=== PATIENT | female | born 1960 | race Caucasian/White ===

== ENCOUNTER → 2023-05-09 07:33 | Outpatient (REF) | payer BC, SELFPAY | LOC: HWRAD 07:33 | PROVIDERS: ATTENDING PHYSICIAN Family Medicine | DX: Z78.0 Asymptomatic menopausal state (principal); Z87.891 Personal history of nicotine dependence | CPT/HCPCS: 71271; 77063; 77067; 77080 ==

== ENCOUNTER 2023-06-20 10:23 | Emergency (ER) | payer BC, SELFPAY ==
[2023-06-20 10:26] VITALS: BP 120/59
[2023-06-20 11:08] VITALS: BMI 22.2
[2023-06-20 11:12] VITALS: BP 103/56
[2023-06-20 11:21] LABS: % Basophils 0.3 % (0-2); % Eosinophils 0.1 % (0-6); % Immature Granulocytes 0.4 % (0-0.5); % Lymphocytes 13.7 % (20.5-51.1); % Neutrophils 75.5 % (42.2-75.2); Absolute Immature Granulocytes 0.1 10^3/uL (0-0.05); Absolute Lymphocytes 1.7 10^3/uL (1.2-3.4); Absolute Monocytes 1.2 10^3/uL (0.1-0.6); Absolute Neutrophils 9.3 10^3/uL (1.4-6.5); Hemoglobin 12.8 g/dL (12.0-16.0); Mean Corp Hgb Conc. 34.6 g/dL (33.0-37.0); Mean Corpuscular Hgb 31.1 pg (27.0-31.0); Mean Corpuscular Volume 89.8 fL (81.0-99.0); Mean Platelet Volume 9.6 fL (7.4-10.4); Nucleated Red Blood Cells % 0 %; Platelet Count 253 10^3/uL (130-400); Red Blood Cell Count 4.12 10^6/uL (4.20-5.40); Red Cell Dist. Width 11.7 % (11.5-14.5); White Blood Cell Count 12.3 10^3/uL (4.8-10.8)
[2023-06-20 11:34] LABS: Urine Albumin Negative (Neg - Trace); Urine Bilirubin Negative (Negative); Urine Character Clear (Clear); Urine Color Yellow; Urine Glucose Negative (Negative); Urine Ketone Negative (Negative); Urine Leukocyte Negative (Negative); Urine Nitrite Negative (Negative); Urine Occult Blood 2+ (Negative); Urine Specific Gravity 1.015 (<1.030); Urine Urobilinogen Negative (Neg - 1+)
[2023-06-20 11:57] LABS: ALT (SGPT) 22 U/L (0-35); AST (SGOT) 26 U/L (14-36); Albumin 4.2 g/dl (3.5-5.0); Alkaline Phosphatase 80 U/L (38-126); Blood Urea Nitrogen 13 mg/dl (7-17); Calcium 9.2 mg/dl (8.4-10.2); Carbon Dioxide 29 mmol/L (22-30); Chloride 100 mmol/L (98-107); Estimated Creatinine Clearance 66 ml/min; Glucose 96 mg/dl (70-99); Lipase 46 U/L (23-300); Potassium 3.5 mmol/L (3.5-5.1); Sodium 135 mmol/L (135-145); Total Bilirubin 0.8 mg/dl (0.2-1.3); Total Protein 6.7 g/dl (6.3-8.2); eGFR > 60.00
[2023-06-20 12:04] VITALS: BP 123/67
[2023-06-20 12:05] LABS: Urine Urothelial Cell 0-2 /LPF (FEW)
[2023-06-20 12:06] LABS: Urine Bacteria Few (Negative); Urine White Cell 0-2 /HPF (0-5)
--- NOTE | 2023-06-20 12:27 | ED.GENMED ---
History of Present Illness
General
Chief Complaint: Abdominal Pain
Source: patient
Exam Limitations: none
Time Seen by Provider: 06/20/23 11:04
Nursing documentation reviewed up to this point in time: agreed with
Travel History
Have you had any contact with someone who has COVID-19?: No
Do you have any symptoms of coronavirus? Fever > 100 degrees, chills, cough, shortness of breath, sore throat, loss of taste or smell, muscle aches, or headache?: No
History of Present Illness
History of Present Illness:
62-year-old female presents to the ER complaining left lower abdominal pain that she noticed yesterday getting progressively worse. She was up throughout the night pacing because of pain. She has moved her bowels normally yesterday and today. She
is nauseous with this pain. It comes in waves. She does have some left-sided back pain. She was seen by her family doctor and sent here to the ER. She reports her family doctor was concerned about Betadine reaction conflicting with IV contrast
of CAT scan. She denies any fever chills chest pain. Denies any other frequency urgency or dysuria.
Review of Systems
Review of Systems
Allergies reviewed?: Yes
All Other Systems: ROS reviewed and negative except as documented in HPI and ROS
Constitutional: Reports no symptoms; Denies fever, fatigue or chills
Respiratory: Reports no symptoms
Cardiac: Reports no symptoms
ABD/GI: Reports abdominal pain and nausea; Denies vomiting, diarrhea or constipated
: Reports flank pain (left flank )
Musculoskeletal: Reports no symptoms
Skin: Reports no symptoms
Neurological: Reports no symptoms
Psychiatric: Reports no symptoms
Phy Exam
General Physical Exam
General Presentation: no apparent distress
General age: appears stated age
General Skin: warm and dry
General Habitus: normal
General Mental: alert
Gastrointestinal Exam
Gastrointestinal Exam: soft and other (tender llq pain )
Neurological Exam
Neurological Exam: alert and oriented x3
Musculoskeletal Exam
Musculoskeletal Exam: full ROM
Skin Exam
Skin Exam: normal color and warm/dry
Psychiatric Exam
Psychiatric Exam: normal mood/affect
Course
Orders/Labs/Results
Orders:
Orders
06/20/23 11:13
Complete Blood Count/With Diff Urgent
Comprehensive Metabolic Panel Urgent
Lipase Urgent
Urinalysis Reflex To Culture Urgent
Date Specimen was Collected: 06/20/23
Time Specimen was Collected: 11:08
Urine Microscopic Reflex Cult Urgent
06/20/23 12:35
Iohexol [Omnipaque] See Protocol PO NOW STA
06/20/23 12:38
CT Abd/pel W Iv And Oral Contr Urgent
Comment:
Reason For Exam: LLQ tenderness/pain
06/20/23 12:39
0.9% Sodium Chloride 1000 ml [Nss] 1,000 ml IV BOLUS
06/20/23 15:42
Amoxicillin 875 mg/Clav 125 mg [Augmentin 875 mg/125 mg] 1 tablet PO NOW STA
Abnormal Lab Results
06/20/23
11:13
WBC 12.3 H 10^3/uL
(4.8-10.8)
RBC 4.12 L 10^6/uL
(4.20-5.40)
MCH 31.1 H pg
(27.0-31.0)
Abs Immat Gran (auto) 0.1 H 10^3/uL
(0-0.05)
Absolute Neuts (auto) 9.3 H 10^3/uL
(1.4-6.5)
Absolute Monos (auto) 1.2 H 10^3/uL
(0.1-0.6)
Neutrophils % 75.5 H %
(42.2-75.2)
Lymphocytes % 13.7 L %
(20.5-51.1)
Monocytes % 10.0 H %
(1.7-9.3)
Ur Occult Blood Reflex 2+ A
(Negative)
Urine RBC 7-10 A /HPF
(0-2)
Urine Bacteria (Reflex) Few A
(Negative)
06/20/23 11:13
06/20/23 11:13
Vital Signs
Initial and Last Documented VS:
Initial Vital Signs
Temp Pulse Resp BP Pulse Ox
99.1 F 84 16 120/59 100
06/20/23 10:26 06/20/23 10:26 06/20/23 10:26 06/20/23 10:26 06/20/23 10:26
Last Documented Vital Signs
Temp Pulse Resp BP Pulse Ox
99.1 F 69 17 122/68 99
06/20/23 10:26 06/20/23 15:54 06/20/23 15:54 06/20/23 15:54 06/20/23 15:54
MDM/Problems Addressed
Differential Diagnosis Includes:
Not limited to diverticulitis colitis bowel obstruction pancreatitis
MDM/Problems Addressed:
62 yr old female presents to the ER for evaluation of left-sided abdominal pain that started last night getting worse. Patient is tender throughout the left lower quadrant. She denies any fevers white count is minimally elevated 12.3 with normal
chemistries. Patient was sent by family doctor to get the CAT scan here because of questionable Betadine allergy interfering with iodine. This does not interfere I did speak with radiology. Patient will need oral contrast in addition to IV
because of low BMI. She is tender in the left lower quadrant will rule out diverticulitis there is a possibility of kidney stone as patient does have blood in the urine.
ct shows : 4 cm thickening of the wall of the colon at the level of the junction of the distal descending and proximal sigmoid colon without obstruction no fluid collection consistent with diverticulitis. However on CAT scan note it does agree
that diagnostic possibilities also include focal colitis or inflammatory mass we will treat for diverticulitis his symptoms are clinically consistent with diverticulitis but I reviewed with patient the importance of having a repeat follow-up CAT
scan to ensure resolution of symptoms and no mass.
*Pulse Oximetry
Patient hypoxic: no
*Critical Care Note
Total Time (30-74mins, 75-104mins- exclusive of procedures): Not Applicable
ED Attending Note
-
Portions of this chart may have been created with voice recognition software.� Occasional wrong word or��sound alike� substitutions may have occurred due to the inherent limitations of voice recognition software.
Discharge Plan
Departure
Patient Disposition: Home (Routine Discharge)
Date of Disposition: 06/20/23
Time of Disposition: 15:41
Patient with high blood pressure during this ER visit?: No
Condition: Fair
Covid-19: Not Applicable
Discharge Problem:
Diverticulitis
Instructions: Diverticulitis (DC)
Prescriptions:
New
amoxicillin-pot clavulanate 875-125 mg tablet
1 tab PO BID Qty: 20 0RF
Referrals:
Nela Brady, [Family Provider] -
Activity Restrictions/Additional Instructions:
As discussed antibiotic, Augmentin twice daily for the next 10 days for symptoms. This medication was sent to your pharmacy. Follow-up with family doctor and your GI specialist in the next several days.
call tomorrow for an appointment. Return if any worsening of symptoms. It is also recommended that you have a repeat follow-up CAT scan to ensure resolution of symptoms. This will be either ordered by your family doctor or your GI specialist.
Interventions
Interventions:
*Risk Screen - Suicide Last Done: 06/20/23 10:26
*General Assessment Last Done: 06/20/23 11:09
*Neglect/Abuse Screening Last Done: 06/20/23 10:26
*ED COVID-19 Vaccine History Last Done: 06/20/23 10:26
*Nursing Disposition Last Done: 06/20/23 15:55
FJ-Qzvuey-Uymrabnmmn Assessment Last Done: 06/20/23 11:10
Discharge Date and Time
Discharge Date/Time: 06/20/23 15:59
Print Language: ARGENTINE
[2023-06-20] MEDS: NSS 1000 IV (12:46)
[2023-06-20] MEDS: OMNIPAQUE 50 ML PO (12:46)
[2023-06-20 14:00] VITALS: BP 95/58
[2023-06-20] MEDS: AUGMENTIN 875 MG/125 MG 1 TABLET PO (15:46)
[2023-06-20 15:54] VITALS: BP 122/68
== END 2023-06-20 15:59 | disposition home or self-care (01) ==
LOC: EMR 10:23
PROVIDERS: Nurse Practitioner; EMERGENCY PHYSICIAN Emergency Medicine; FAMILY PHYSICIAN Family Medicine
DX: K57.92 Diverticulitis of intestine, part unspecified, without perforation or abscess without bleeding (principal)
CPT/HCPCS: 99285; 96360; 74177; 80053; 81003; 81015; 83690; 85025; Q9967

== ENCOUNTER → 2023-07-04 09:28 | Outpatient (REF) | payer BC, SELFPAY | LOC: HWRAD 09:28 | PROVIDERS: ATTENDING PHYSICIAN Family Medicine | DX: R93.5 Abnormal findings on diagnostic imaging of other abdominal regions, including retroperitoneum (principal) | CPT/HCPCS: 74176 ==

== ENCOUNTER → 2023-07-27 07:10 | Outpatient (REF) | payer BC, SELFPAY | LOC: HWRAD 07:10 | PROVIDERS: ATTENDING PHYSICIAN Student in an Organized Health Care Education/Training Program; FAMILY PHYSICIAN Family Medicine | DX: M81.0 Age-related osteoporosis without current pathological fracture (principal) | CPT/HCPCS: 72072; 72110 ==

== ENCOUNTER → 2024-02-15 08:07 | Outpatient (REF) | payer BC, SELFPAY | LOC: HWRAD 08:07 | PROVIDERS: ATTENDING PHYSICIAN Student in an Organized Health Care Education/Training Program; FAMILY PHYSICIAN Family Medicine | DX: S32.2XXS Fracture of coccyx, sequela (principal); M19.049 Primary osteoarthritis, unspecified hand | CPT/HCPCS: 72170; 72202; 73130 ==

== ENCOUNTER → 2024-05-09 07:15 | Outpatient (REF) | payer BC, SELFPAY | LOC: HWWDC 07:15 | PROVIDERS: ATTENDING PHYSICIAN Family Medicine | DX: Z87.891 Personal history of nicotine dependence (principal); Z12.31 Encounter for screening mammogram for malignant neoplasm of breast | CPT/HCPCS: 71271; 77063; 77067 ==

== ENCOUNTER → 2024-08-25 15:48 | Outpatient (REF) | payer OTHER, SELFPAY | LOC: HWRAD 15:48 | PROVIDERS: ATTENDING PHYSICIAN Internal Medicine | DX: R06.02 Shortness of breath (principal) | CPT/HCPCS: 71046 ==